=== PATIENT | male | born 1995 | race Caucasian/White ===

== ENCOUNTER 2018-01-06 14:38 | Outpatient (RCR) | payer OTHER, SELFPAY ==
--- OUTSIDE RECORDS SUMMARY | 2018-01-06 16:29 | XMS RPT_ITS ---
:1995 Author Organization OHIP Care Team Providers Name Role Phone Jasbir Logan Attending Unavailable Jasbir Logan Referring Unavailable JOSÉ ANTONIO GARCIA Primary Care Unavailable PROBLEMS PROBLEMS No Problem Records FoundPROCEDURES PROCEDURES No Procedure Records FoundRESULTS RESULTS No Result Records FoundALLERGIES ALLERGIES No Allergies Records FoundENCOUNTERS ENCOUNTERS ADMIT/DISCHARGE ACCOUNT ADMITTING ENCOUNTER LOCATION SOURCE NUMBER CLASS 01/06/2018 [id number] Ambulatory Adrianne Adrianne 9 [facility] ing:SP Repository PAYERS PAYERS ENCOUNTER GUARANTOR PAYER SUBSCRIBER SOURCE 01/06/2018 SAEED Restrepo Primary SAEED [address] [place] [id number] Insurance:PLANNED HOW[facility]LLD[facility] [id number] [address]Cpw: INCPolicy Number: Repository [id number] () Date:[id number] [address] [address]KM: 01/06/2018 Secondary SAEED Restrepo Adrianne Insurance:[facility] P[facility]AGE HOWELLDOB: [facility] Number: [id number] [id number] Repository Date:2017-12-10 01/06/2018 Tertiary NOT GIVENUNK Adrianne Insurance:SELF PAY [facility] Number: Effective Repository Date:2017-12-10
--- NOTE | 2018-01-06 18:59 | HP.SP.AD_ITS ---
History - History Date of Eval: 01/06/18 Previous speech therapy: Yes Results: Unknown. Pt reports attending speech-language therapy at this facility as a child. Other Relevant Medical History/Diagnoses/Surgery: Pt has never received a formal diagnosis but feels that he is on the autism spectrum. - Pain Is pain an issue with your current prescribed condition?: No - Personal Education History: College graduate Occupation: Unemployed Right Hearing Abillity: Normal Left Hearing Abillity: Normal Visual Assistive Devices: Glasses Patients Living Arrangements: With Family Subjective Clinical Impression - Adult Clinical Impression Dysphonia: any 'abnormal' vocal quality suggesting an interruption of normal production: Present Hoarseness: excessive 'noise' in the signal creating an unpleasant, rough vocal quality: Present Breathiness: an audible excape of air or a 'weak' vocal tone suggestive of glottal insufficiency: Present Harshness: irregular vocal fold vibrations creating a 'raspy' or unmusical tone ; a combination of hoarseness and breathiness: Present Aphonic break: a break or intrruption in the vibration or phonation: Present Pitch breaks: an interruption in the frequency of vibration of the vocal folds or a shift in vocal register during singing. A voice can break up or down in pitch: Present Diplophonia: the presence of two tones or pitches heard simultaneously during phonation: Present Objective Voice - Date of Diagnosis Date of diagnosis: 12/10/17 Other Impressions - Comments Other Impressions -: Anjel was seen by the ENT 12/10/17 and was referred for voice therapy secondary to a diagnosis of mutational dysphonia/juvenile voice disorder. Anjel's voice is characterized by constant speaking in falsetto with a high fundamental frequency, with intermediate diplophonia. His voice is overall weak and breathy. Given cues to produce vegetative type voicing (coughing, yawning, heavy lifting, etc...), he is able to produce voice at a natural and appropriate pitch. He was stimulable for speech at the lower pitch in single phonemes on this date with minimal aphonic and pitch breaks present. When questioned, Anjel states that though he feels awkward speaking in a lower pitch , he would like to pursue therapy of his own volition. Plan - Plan Plan: Therefore, skilled voice therapy is warranted as Anjle's voice is favorable for improvement given consistent therapy and carryover of recommendations. - Recommendations Treatment Warranted: Yes - Frequency Frequency: 1-2x /Week Duration: 4-6 Weeks - Prognosis Prognosis: Excellent - Goals that are Established: Determination:: Goals will be added/modified as deemed necessary and appropriate. Therapy will be discontinued when results of re-evaluation indicate therapy is no longer needed or lack of progress has been documented. - Goal #1-5 Goal #1: Anjel will demonstrate an appropriate lower pitch with vegetative voice tasks and/or ni compression method independently Accuracy: 90% # Sessions: 3/4 consecutive Goal #2: Anjel will increase awareness of his voice by identifying his lower pitch vs. his habitual pitch during structured therapy Prompts: Min Accuracy: 90% # Sessions: 3/4 consecutive Goal #3: Anjel will produce an appropriate lower pitch and improved vocal quality through the hierarchy of single phonemes, single words, sentences, reading aloud, and conversation with increased independence Prompts: Min Accuracy: 90% # Sessions: 3/4 consecutive Education - Patient Instruction Patient Education: Diagnosis, Treatment Plan, Goals
--- NOTE | 2018-03-05 09:51 | HP.SP.DC ---
ST Discharge Summary - Discharged: Discharge: Anjel Barrera is discharged from outpatient voice therapy effective 03/05/18. Anjel attended his intial evaluation but cancelled all therapy sessions and has now [place] to school [place] of [place]. During his evaluation, he was able to produce voice at a natural pitch in single words only given moderate cueing. The patient stated that he would like to continue therapy when he returns from school next summer. Please reconsult as necessary.
== END 2018-01-06 19:00 | disposition home or self-care (01) ==
LOC: SP 14:38
PROVIDERS: Family Provider Physician Assistant; PCP Physician Assistant; Visit Provider Otolaryngology
DX: R49.0 Dysphonia (principal)
CPT/HCPCS: 92524

== ENCOUNTER 2018-12-09 17:00 | Outpatient (RCR) | payer OTHER, SELFPAY ==
--- NOTE | 2018-09-21 14:26 | HP.SP.AD ---
History - History Date of Eval: 09/21/18 Previous speech therapy: Yes Results: Patient saw speech therapy in childhood. He had an evaluation summer 2017 but moved out of state so did not continue therapy. Other Relevant Medical History/Diagnoses/Surgery: Autism. Hx Smoking: No Hx Tobacco Use: No - Pain Is pain an issue with your current prescribed condition?: No - Personal Education History: [employer]. Occupation: Factory. Right Hearing Abillity: Normal Left Hearing Abillity: Normal Visual Assistive Devices: Glasses Patients Living Arrangements: Parents. Subjective Clinical Impression - Adult Clinical Impression Dysphonia: any 'abnormal' vocal quality suggesting an interruption of normal production: Present Hoarseness: excessive 'noise' in the signal creating an unpleasant, rough vocal quality: Present Breathiness: an audible excape of air or a 'weak' vocal tone suggestive of glottal insufficiency: Present Harshness: irregular vocal fold vibrations creating a 'raspy' or unmusical tone; a combination of hoarseness and breathiness: Present Aphonic break: a break or intrruption in the vibration or phonation: Present Pitch breaks: an interruption in the frequency of vibration of the vocal folds or a shift in vocal register during singing. A voice can break up or down in pitch: Present Other Impressions - Comments Voice -: Anjel was evaluated by ENT 12/10/17 and was diagnosed with mutational dysphonia. His voice is characterized by speaking in a falsetto voice and when he attempts a lower pitch then he has intermediate diplophonia. He needed a high level of cues to reduce his pitch to a more typical pitch. He was able to say his name clearly with an appropriate pitch one time with no roughness or breaks. Plan - Plan Plan: Skilled speech therapy is warranted for his voice disorder. - Recommendations Treatment Warranted: Yes - Frequency Frequency: Every Other Week Duration: 6 Weeks Visits in this POC: 6 - Prognosis Prognosis: Excellent - Goals that are Established: Determination:: Goals will be added/modified as deemed necessary and appropriate. Therapy will be discontinued when results of re-evaluation indicate therapy is no longer needed or lack of progress has been documented. - Goal #1-5 Goal #1: Anjel will demonstrate an appropriate lower pitch with vegetative voice tasks and/or manual compression method independently. Accuracy: 90% # Sessions: 3/4 sessions Goal #2: Anjel will increase awareness of his voice by identifying his lower pitch vs habitual pitch during structured therapy. Prompts: Min Accuracy: 90% # Sessions: 3/4 sessions Goal #3: Anjel will produce an appropriate lower pitch and improved vocal quality through the hierarchy of single phonemes, single words, sentences, reading aloud, and conversation with increased independence. Prompts: Min Accuracy: 90% # Sessions: 3/4 sessions. Education - Patient has Indicated that the Following Identified Educational Needs: None The Patient has indicated that they have no educational or learning abilities that may effect their care.: Yes - Patient Instruction Patient Education: Diagnosis, Treatment Plan, Goals Person Taught: Patient Teaching Method: Discussion
--- NOTE | 2018-12-09 17:16 | HP.SP.DC ---
ST Discharge Summary - Discharged: Discharge: The Patient is a 23 year old male who attended 6 skilled speech-language intervention sessions spanning from 09/21/2018 to 12/09/2018 targeting vocal functioning secondary to the diagnosis of mutational dysphonia. The Patient participated in intervention sessions consisting of training and implementation of vocal control exercises in addition to vocal modification through the Voice Resonance Training (VRT) protocol. Throughout intervention, the Patient has been able to consistently lower and maintain his vocal register to ~ 120-150 Hz, though only when prompted; otherwise he continues to utilize a high, almost falsetto vocal register (~ 250-325 Hz) with dysphonia and occasional diplophonia. Carryover has been complicated, as the Patient reports frequently ?forgetting? to advance with functional carryover tasks, preferring to maintain more isolated activities (i.e., reading to self), and appears apprehensive in regards to public usage. At this juncture, the Patient had demonstrated sufficient ability to achieve a lower vocal register, and would be able to translate this to functional usage when comfortable; however this may take a longer duration and will be heavily dependent on the desire set forth by the Patient. After discussion with the Patient, all immediate intervention goals have been met, and all are in agreement with proceeding with discharge from the skilled speech-language pathology caseload at this time. If detention carryover is not appreciated, I would gladly re-initiate intervention as needed moving forward.
== END 2018-12-09 19:00 | disposition home or self-care (01) ==
LOC: SP 17:00
PROVIDERS: Family Provider Physician Assistant; PCP Physician Assistant; Referring Provider Otolaryngology; Visit Provider Otolaryngology
DX: R49.0 Dysphonia (principal)
CPT/HCPCS: 92507; 92524

== ENCOUNTER 2024-01-07 05:49 | Emergency (ER) | payer OTHER, SELFPAY ==
[2024-01-07 05:50] VITALS: BP 140/93; PULSE 87; RESP 16; TEMP 36.8; O2SAT 98; BMI 27.3
--- NOTE | 2024-01-07 06:06 | RAD_ITS ---
EXAM: XR ABDOMEN, 2 VIEWS CLINICAL INDICATION: constipation, vomiting TECHNIQUE: Frontal view of the abdomen/pelvis with upright view of the abdomen. COMPARISON: No relevant prior studies available. FINDINGS: LOWER THORAX: No acute pathology. INTRAPERITONEAL SPACE: No free air. GASTROINTESTINAL TRACT: Moderate amount of fecal material throughout the colon. Non-obstructive. No bowel or stomach distention. ORGANS: Unremarkable as visualized. No organomegaly. No abnormal calcifications. BONES/JOINTS: No acute pathology. SOFT TISSUES: No acute pathology. RAD/Abd Inc Decub and/or Erect IMPRESSION: Constipation. No signs of obstruction. Electronically Signed: Raúl Durham MD at 6:58 EDT ,
--- NOTE | 2024-01-07 06:07 | EX.ED.DYSGE1 ---
HPI History of Present Illness Chief Complaint: Abd Pain Informant: patient Onset/Context/Timing Onset: Days Context: Gradual Onset Narrative Narrative: Patient present secondary to abdominal pain with vomiting. Patient states he has upper abdominal pain that radiates to his back that started earlier this week. This morning has had nausea and vomiting. He was seen at [facility] on the where I am able to see results of lab work and CT imaging, but no ED summary of the visit. Patient denies having fever or chills. He denies diarrhea and states he is actually been constipated. He denies history of pancreatitis. [facility] Medical History (Updated 01/07/24 @ 06:[address] Christie Mccann MD) Autism Home Medications ?Medication ?Instructions ?Recorded ?Last Taken ?Type magnesium citrate 300 ml PO X1 #1 BOTTLE 01/07/24 Unknown Rx ondansetron 4 mg disintegrating 4 mg PO Q8H PRN PRN Nausea #10 tabs 01/07/24 Unknown Rx tablet Allergy/AdvReac Type Severity Reaction Status Date / Time No Known Allergies Allergy Verified 01/07/24 05:55 Surgical History History of vasectomy Social History Smoking Status: Never smoker ROS ROS ED Constitutional Constitutional ED: Denies chills or fever(s) Eyes Eyes: Denies change in vision ENT ENT ED: Denies rhinorrhea or sore throat Cardiovascular Cardiovascular: Denies chest pain or palpitations Respiratory/Chest Respiratory/Chest: Denies cough or dyspnea Gastrointestinal Gastrointestinal: Reports abdominal pain, constipation, nausea and vomiting Genitourinary Genitourinary ED: Denies dysuria Musculoskeletal Musculoskeletal: Reports back pain Neurologic Neurologic: Denies headache(s) EXAM Physical Exam Const Vital Signs: 01/07/24 05:50 Temperature 98.3 F Temperature Source Temporal Pulse Rate 87 Respiratory Rate 16 Blood Pressure 140/93 H Blood Pressure Mean 108 Pulse Ox 98 Oxygen Delivery Method Room Air Positive well nourished and well developed General Appearance ED: well developed HEENT Reports moist mucous membranes Eyes EOMs intact bilaterally Chest Wall inspection of chest normal and palpation of chest normal Resp normal respiratory effort and clear to auscultation bilaterally Cardio regular rate and regular rhythm GI non-tender Auscultation: hypoactive bowel sounds Palpation: soft Extremity normal to inspection Neuro oriented x3 and no sensory deficits noted Motor Exam: strength 5/5 throughout Psych mental status grossly normal Skin no rashes or lesions noted MDM MDM MDM Narrative Medical decision making narrative: Patient CT scan from the is reviewed. No appreciable acute intra-abdominal or pelvic abnormality was noted. Hypoechoic lesions are noted in the right lobe of the liver measuring soft tissue density and ultrasound or MRI is recommended. Lab work was reviewed and noted a normal white count of 5.4 with a hemoglobin of 15.1. Normal differential. Chemistry studies were unremarkable including normal LFTs and lipase. Urine was unremarkable. Today IV line is established. Patient be given Zofran and Bentyl. Labwork obtained to evaluate for leukocytosis, anemia, and electrolyte derangement. Abdominal x-rays obtained to evaluate for any evidence of obstruction given the patient's vomiting and constipation. History & Record Review Discussion w/independent historian: Patient Additional record(s) reviewed:: Prior ED visit and Prior labs Lab Data Attestation: I reviewed the patient's lab results. Labs: Laboratory Results - last 24 hr 01/07/24 01/07/24 06:00 06:29 WBC 5.2 RBC 5.26 Hgb 16.5 Hct 48.6 MCV 92.4 MCH 31.4 MCHC 34.0 RDW Std Deviation 43.0 RDW Coeff of Pedro 12.6 Plt Count 321 MPV 8.6 Immature Gran % (Auto) 0.200 Neut % (Auto) 59.1 Lymph % (Auto) 27.0 [place] % (Auto) 10.5 H Eos % (Auto) 2.1 Baso % (Auto) 1.1 H Absolute Neuts (auto) 3.1 Absolute Lymphs (auto) 1.41 Nucleated RBC % 0 Sodium 138 Potassium 4.2 Chloride 103 Carbon Dioxide 30.0 Anion Gap 5 BUN 13 Creatinine 1.06 Estim Creat Clear Calc 112.86 Est GFR (MDRD) Af Amer 106 Est GFR (MDRD) Non-Af 87 BUN/Creatinine Ratio 12.3 Glucose 107 H Calcium 9.3 Total Bilirubin 0.80 Direct Bilirubin 0.18 AST 12 L ALT 27 Alkaline Phosphatase 81 Total Protein 7.8 Albumin 4.2 Globulin 3.6 Lipase 31 Urine Color Yellow Urine Clarity Clear Urine pH 6.0 Ur Specific [place] 1.020 Urine Protein Negative Urine Glucose (UA) Normal Urine Ketones Negative Urine Occult Blood Negative Urine Nitrite Negative Urine Bilirubin Negative Urine Urobilinogen Normal Ur Leukocyte Esterase Negative Urine RBC 0 SEEN Urine WBC 0 SEEN Ur Squamous Epith Cells 0 SEEN Urine Bacteria 0 SEEN Urine Mucus 0 SEEN Treatment and Re-Evaluation :: CBC was normal white count at 5.2 with a hemoglobin of 16.5. Differential unremarkable. Chemistry studies are normal. LFTs and lipase normal. Urinalysis reveals no evidence of infection or dehydration. Abdominal x-ray with upright abdomen per my interpretation does reveal constipation but no evidence of bowel obstruction. On review of the patient's home meds, it does appear that the ED physician in [place] wrote the patient for Zofran and Bentyl. He initially had told me he did not receive any prescriptions from his ED visit. He now states that he did take the medication, but after following with his primary care physician was concerned that that might be causing his constipation so he stopped taking it. I will get the patient a prescription for Zofran along with a bottle of magnesium citrate. I do feel he needs his constipation treated. He does not have any evidence of acute infection or bowel obstruction. Patient given return instructions. He is comfortable with the plan. Discharge Plan Triage Chief Complaint: Abd Pain ED Provider: Christie Mccann Dx/Rx/DC Orders Clinical Impression: Abdominal pain, Vomiting, Constipation Instructions: ED Constipation (Adult), ED Vomiting (Adult) Prescriptions: New ondansetron 4 mg tablet,disintegrating 4 mg PO Q8H PRN PRN (Reason: Nausea) Qty: 10 0RF magnesium citrate Solution 300 ml PO X1 Qty: 1 0RF Primary Care Provider: Christine Pascal Referrals: Christine Pascal MD [Primary Care Provider] - 3-5 Days if not improving Print Language: Latvian Disposition Disposition: Home, Self Care
[2024-01-07 06:17] LABS: Absolute Lymphocyte Count 1.41 X10^3/uL (0.83-4.51); Absolute Neutrophil Count 3.1 X10^3/uL (2.0-7.7); Basophil# 0.06 X10^3/uL; Basophil% 1.1 % (0-1); Eosinophil# 0.11 X10^3/uL; Eosinophils% 2.1 % (0-5); Hematocrit 48.6 % (40-54); Hemoglobin 16.5 g/dL (13.0-16.5); Lymphocyte # 1.41 X10^3/ul (0.83-4.51); Mean Corpuscular Hgb 31.4 pg (27.0-32.0); Mean Corpuscular Volume 92.4 fL (80-94); Mean Platelet Vol. 8.6 fl (6.2-12.0); Monocyte# 0.55 X10^3/uL; Monocyte% 10.5 % (0-10); NRBC Flagged by Analyzer 0 % (0-5); Neutrophil # 3.08 X10^3/uL (2.7-7.7); Neutrophil % 59.1 % (47-70); Platelet Count 321 K/mm3 (150-450); RBC Distribution Width CV 12.6 % (11.6-14.6); Red Blood Count 5.26 M/mm3 (4.6-6.2); White Blood Count 5.2 K/mm3 (4.4-11.0)
[2024-01-07] MEDS: Ondansetron 4 MG/2 ML Vial IV (06:18)
[2024-01-07] MEDS: 0.9% Normal Saline (1000mL) 1,000 ML 1000 ML IV (06:18)
[2024-01-07] MEDS: Dicyclomine 20 MG/2 ML Vial IM (06:18)
[2024-01-07 06:35] LABS: Bacteria 0 SEEN /hpf (None Seen); Mucous, Urine 0 SEEN /hpf (<or=2+); Red Blood Cells-Urine 0 SEEN /hpf (0-5); Squamous Epithelial Cells - UA 0 SEEN /hpf (0-5); White Blood Cells 0 SEEN /hpf (0-5)
[2024-01-07 06:35] LABS: AST(SGOT) 12 U/L (15-37); Alanine Aminotransfer ALT/SGPT 27 U/L (16-61); Albumin, Serum 4.2 g/dL (3.2-5.0); Alkaline Phosphatase 81 U/L (45-117); Anion Gap 5 (5-15); BUN 13 mg/dL (7-18); BUN/Creat Ratio 12.3 RATIO (10-20); Bilirubin, Direct 0.18 mg/dL (0.00-0.30); Calcium,Total 9.3 mg/dL (8.5-10.1); Chloride 103 mmol/L (98-107); Creatinine, Serum 1.06 mg/dL (0.70-1.30); EST Glomerular Filtration Rate 87 mL/min (>60); Est Glom Filt Rate - Afr Amer 106 mL/min (>60); Estimated Creatinine Clearance 112.86 ml/min; Globulin 3.6 g/dL (2.2-4.2); Glucose 107 mg/dL (74-106); Lipase 31 U/L (13-75); Potassium 4.2 mmol/L (3.5-5.1); Protein, Total 7.8 g/dL (6.4-8.2); Sodium Level 138 mmol/L (136-145)
[2024-01-07 06:37] LABS: Color, Urine Yellow (Yellow); Glucose, Dipstick Normal (Normal); Ketone-Dipstick Negative (Negative); Leukocyte Esterase-Dipstick Negative /ul (Negative); Nitrite-Dipstick Negative (Negative); Occult Blood-Urine Negative /ul (Negative); Protein-Dipstick Negative (Negative); Urine Bilirubin Dipstick Negative (Negative); Urine Clarity Clear (Clear); Urine Urobilinogen Normal (Normal)
[2024-01-07 07:08] VITALS: BP 130/76; PULSE 69; RESP 16; TEMP 36.6; O2SAT 98
== END 2024-01-07 07:08 | disposition home or self-care (01) ==
LOC: ED 07:01
PROVIDERS: Emergency Provider Emergency Medicine; PCP Physician Assistant; Visit Provider Emergency Medicine
DX: R10.9 Unspecified abdominal pain (principal); R11.10 Vomiting, unspecified; K59.00 Constipation, unspecified; F84.0 Autistic disorder
CPT/HCPCS: 74019; 80048; 80076; 81001; 83690; 85025; 96361; 96372; 96374; 96376; 99283; J7030; J7050; A4216; J2405

== ENCOUNTER 2024-02-08 08:01 | Emergency (ER) | payer OTHER, SELFPAY ==
[2024-02-08 08:01] VITALS: BP 131/88; PULSE 103; RESP 16; TEMP 36.5; O2SAT 98; BMI 27.1
--- NOTE | 2024-02-08 08:29 | CT_ITS ---
STUDY: CT ABDOMEN AND PELVIS WITH CONTRAST REASON FOR EXAM: Male, 28 years old. RLQ abdominal pain. Right testicular pain. Prior meniscectomy. RADIATION DOSAGE (If Supplied By Facility): CTDIvol = ( 13.09 ) mGy, DLP = ( 918.56 ) mGycm TECHNIQUE: Transaxial images were obtained from the dome of the diaphragm to the symphysis pubis without oral contrast. IV 100mL Isovue-370 was administered. Sagittal and coronal images were reconstructed. Individualized dose optimization techniques were used for this CT. COMPARISON: None. FINDINGS: The visualized lung bases are unremarkable. The visualized portions of the heart are within normal limits. Multiple hypodense nodules in the liver most likely representing cysts although correlation with ultrasound is recommended for further evaluation. The gallbladder is contracted. Normal spleen. Normal pancreas. Normal bilateral adrenal glands. Punctate nonobstructive calculus is seen in the upper pole calyx of the right kidney. There is a 3.1 cm x 2.3 cm cyst in the lateral aspect of the left kidney. There is a small hiatal hernia. Normal small intestine. There is diverticulosis, with thickening of the colon wall, and pericolonic inflammation changes consistent with acute diverticulitis. The appendix is visualized and appears normal. Enlarged lymph nodes in the mesentery of the right lower quadrant suggestive of mesenteric adenitis. Normal abdominal aorta. Normal inferior vena cava. There is small retroperitoneal lymphadenopathy with enlarged nodes no greater than 10mm in the short axis diameter. Diffuse bladder wall thickening. Normal abdominal wall. Normal osseous structures. CT/Abdomen/Pelvis W IV Cont ONLY IMPRESSION: Multiple hypodensities in the liver suggestive of a hepatic cyst although correlation with ultrasound is recommended. Contracted gallbladder. Left renal cyst. Noncomplicated acute sigmoid diverticulitis. Diffuse bladder wall thickening. Findings suggestive of mesenteric adenitis in the right lower quadrant. Electronically Signed: Vaibhav Chapman MD at 9:54 EDT ,
--- NOTE | 2024-02-08 08:31 | EX.ED.DYSGE1 ---
HPI History of Present Illness Chief Complaint: Abd Pain Narrative Narrative: Patient is a 28-year-old male who presents to the emergency department with a chief complaint of abdominal pain and rates his abdominal pain 4 out of 10. Patient states this been going on for a serious amount of time and notes that he has trouble with constipation. He states that his last bowel movement was this morning. He states that he has a follow-up appointment on February 13 with a specialist for his constipation. Patient states that his pain feels slightly different today which was what prompted him to come to the emergency department for further evaluation management. Patient states that he tried to take stool softeners at home which did not seem to help his abdominal pain and bowel movements. [facility] Medical History Autism Home Medications ?Medication ?Instructions ?Recorded ?Last Taken ?Type magnesium citrate 300 ml PO X1 #1 BOTTLE 01/07/24 Unknown Rx ondansetron 4 mg disintegrating 4 mg PO Q8H PRN PRN Nausea #10 tabs 01/07/24 Unknown Rx tablet amoxicillin-potassium clavulanate 2 tab PO BID 5 days #20 tabs 02/08/24 Unknown Rx 1,000 mg-62.5 mg tablet,ext.rel 12hr (Augmentin XR) hyoscyamine sulfate 0.125 mg 0.125 mg PO Q6H #16 tabs 02/08/24 Unknown Rx tablet (Levsin) Allergy/AdvReac Type Severity Reaction Status Date / Time No Known Allergies Allergy Verified 01/07/24 05:55 Surgical History History of vasectomy Social History Smoking Status: Never smoker ROS ROS ED ROS Narrative Constitutional: Denies any fevers, chills, headaches Cardiovascular: Denies chest pain or palpitations Respiratory: Denies cough wheezing shortness of breath Abdomen: Complains of abdominal pain as noted above and nausea denies vomiting or diarrhea once again noted that his last bowel movement was this morning : Denies pain formation, hematuria, polyuria, urethral discharge Neurological: Denies numbness weakness, tingling Musculoskeletal: Denies back pain Skin: Denies rashes or lesions EXAM Physical Exam Narrative Exam Narrative: General: Patient was lying in bed rest comfortably did not appear to be in acute distress Head: Atraumatic, normocephalic Eyes: PERRL bilaterally, EOMI bilaterally no conjunctival injection noted Neck: Soft, supple, trach midline Cardiovascular: Regular rate and rhythm no murmurs gallops rubs noted Respiratory: Clear to auscultation bilaterally Abdomen: Soft, nondistended, tender to palpation in the right lower quadrant, no rebound or guarding on exam Genitourinary: No evidence of inguinal hernias, no tenderness palpation over the bilateral testicles nor any tenderness to palpation over the bilateral epididymitis. No rashes or lesions noted no urethral discharge noted Extremities: Radial pulses +2/4 in the bilateral upper extremities, no pedal edema noted on exam Neurological: Patient following commands knew that he was at [facility] year is 2023 Skin: Warm, dry, intact Const Vital Signs: 02/08/24 08:01 02/08/24 10:01 Temperature 97.7 F L Temperature Source Temporal Pulse Rate 103 H 81 Respiratory Rate 16 16 Blood Pressure 131/88 H 133/77 H Blood Pressure Mean 102 95 Pulse Ox 98 98 Oxygen Delivery Method Room Air Room Air MDM MDM MDM Narrative Medical decision making narrative: Patient is a 28-year-old male who presents to the emergency department chief complaint of abdominal pain. Patient will have a workup performed here on the differential diagnosis includes but not limited to appendicitis, small bowel obstruction, constipation, UTI. Once workup is obtained reviewed he will be reevaluated. Patient will be given IV fluids and Zofran Patient CBC reviewed and showed no evidence of leukocytosis white blood count normal at 10.1, hemoglobin was normal at 14.6, platelet count stable at 312. Patient sodium normal 130, potassium 3.8, creatinine normal at 0.98. Patient's AST and ALT were 15 and 19 respectively. Patient total bilirubin normal at 0.80. Patient lipase normal at 22. Patient urinalysis did not reveal any evidence infection. Patient CT abdomen pelvis showed multiple hypodensities in the liver suggestive of hepatic cyst correlation with ultrasound recommending. Contracted gallbladder. Left renal cyst. Acute noncomplicated sigmoid diverticulitis, findings suggestive of mesenteric adenitis in the right lower quadrant. Did review the results with the patient and significant other at bedside they would like to go home at this point and patient will be sent Augmentin and Levsin to his pharmacy and was encouraged to use ibuprofen/Tylenol for pain control. He is encouraged to follow-up with his primary care physician in the outpatient setting as well as a radio sportscaster. Patient was referred to 1. Patient was encouraged to return with worsening symptoms or other concerns he is agreeable to plan all question concerns answered discharged home in stable condition. Lab Data Labs: Laboratory Results - last 24 hr 02/08/24 02/08/24 08:47 08:58 WBC 10.1 RBC 4.68 Hgb 14.6 Hct 42.6 MCV 91.0 MCH 31.2 MCHC 34.3 RDW Std Deviation 42.6 RDW Coeff of Pedro 12.9 Plt Count 312 MPV 9.1 Immature Gran % (Auto) 0.400 Neut % (Auto) 80.8 H Lymph % (Auto) 8.8 L Sutton % (Auto) 8.6 Eos % (Auto) 0.6 Baso % (Auto) 0.8 Absolute Neuts (auto) 8.1 H Absolute Lymphs (auto) 0.89 Nucleated RBC % 0 Sodium 138 Potassium 3.8 Chloride 105 Carbon Dioxide 31.0 Anion Gap 2 L BUN 10 Creatinine 0.98 Estim Creat Clear Calc 122.07 Est GFR (MDRD) Af Amer 116 Est GFR (MDRD) Non-Af 96 BUN/Creatinine Ratio 10.2 Glucose 102 Calcium 9.3 Total Bilirubin 0.80 AST 15 ALT 19 Alkaline Phosphatase 82 Total Protein 7.5 Albumin 3.7 Globulin 3.8 Albumin/Globulin Ratio 1.0 Lipase 22 Urine Color Yellow Urine Clarity Clear Urine pH 8.0 Ur Specific [place] 1.015 Urine Protein Negative Urine Glucose (UA) Normal Urine Ketones Negative Urine Occult Blood Negative Urine Nitrite Negative Urine Bilirubin Negative Urine Urobilinogen Normal Ur Leukocyte Esterase Negative Urine RBC 0 SEEN Urine WBC 0 SEEN Ur Squamous Epith Cells 0 SEEN Urine Bacteria RARE Urine Mucus 0 SEEN Radiography Diagnostic Testing: Clinical Impression(s) from Imaging Studies Abdomen/Pelvis CT 02/08/24 08:29 IMPRESSION: Multiple hypodensities in the liver suggestive of a hepatic cyst although correlation with ultrasound is recommended. Contracted gallbladder. Left renal cyst. Noncomplicated acute sigmoid diverticulitis. Diffuse bladder wall thickening. Findings suggestive of mesenteric adenitis in the right lower quadrant. Electronically Signed: Vaibhav Chapman MD at 9:54 EDT , Discharge Plan Triage Chief Complaint: Abd Pain ED Provider: Davis Valladares Dx/Rx/DC Orders Clinical Impression: Diverticulitis Prescriptions: New hyoscyamine sulfate [Levsin] 0.125 mg tablet 0.125 mg PO Q6H Qty: 16 0RF amoxicillin-pot clavulanate [Augmentin XR] 1,000-62.5 mg tablet extended release 12 hr 2 tab PO BID 5 Days Qty: 20 0RF No Action ondansetron 4 mg tablet,disintegrating 4 mg PO Q8H PRN PRN (Reason: Nausea) Qty: 10 0RF magnesium citrate Solution 300 ml PO X1 Qty: 1 0RF Primary Care Provider: Tyson Slater Referrals: Tyson Slater PA [Primary Care Provider] - Brandy,DO Chaka [Med Staff - Active Staff] - Activity Restrictions/Additional Instructions: Take prescriptions as prescribed. Follow-up with your primary care physician and a radio sportscaster. Return with worsening symptoms or any concerns. Print Language: German Disposition Disposition: Home, Self Care
[2024-02-08] MEDS: 0.9% Normal Saline (1000mL) 1,000 ML 999 ML IV (08:54)
[2024-02-08] MEDS: Ondansetron 4 MG/2 ML Vial IV (08:54)
[2024-02-08 09:25] LABS: Absolute Lymphocyte Count 0.89 X10^3/uL (0.83-4.51); Absolute Neutrophil Count 8.1 X10^3/uL (2.0-7.7); Basophil# 0.08 X10^3/uL; Basophil% 0.8 % (0-1); Eosinophil# 0.06 X10^3/uL; Eosinophils% 0.6 % (0-5); Hematocrit 42.6 % (40-54); Hemoglobin 14.6 g/dL (13.0-16.5); Lymphocyte # 0.89 X10^3/ul (0.83-4.51); Lymphocyte % 8.8 % (19-41); Mean Corp Hgb Conc 34.3 g/dL (32-36); Mean Corpuscular Hgb 31.2 pg (27.0-32.0); Mean Platelet Vol. 9.1 fl (6.2-12.0); Monocyte# 0.87 X10^3/uL; Monocyte% 8.6 % (0-10); NRBC Flagged by Analyzer 0 % (0-5); Neutrophil # 8.12 X10^3/uL (2.7-7.7); Neutrophil % 80.8 % (47-70); Platelet Count 312 K/mm3 (150-450); RBC Distribution Width CV 12.9 % (11.6-14.6); RBC Distribution Width SD 42.6 fl (35.1-43.9); Red Blood Count 4.68 M/mm3 (4.6-6.2); White Blood Count 10.1 K/mm3 (4.4-11.0)
[2024-02-08 09:31] LABS: Mucous, Urine 0 SEEN /hpf (<or=2+); Red Blood Cells-Urine 0 SEEN /hpf (0-5); Squamous Epithelial Cells - UA 0 SEEN /hpf (0-5); White Blood Cells 0 SEEN /hpf (0-5)
[2024-02-08 09:32] LABS: Color, Urine Yellow (Yellow); Glucose, Dipstick Normal (Normal); Ketone-Dipstick Negative (Negative); Leukocyte Esterase-Dipstick Negative /ul (Negative); Nitrite-Dipstick Negative (Negative); Occult Blood-Urine Negative /ul (Negative); Protein-Dipstick Negative (Negative); Specific Gravity, Urine 1.015 (1.002-1.030); Urine Bilirubin Dipstick Negative (Negative); Urine Clarity Clear (Clear); Urine Urobilinogen Normal (Normal)
[2024-02-08 09:45] LABS: Bacteria RARE /hpf (None Seen)
[2024-02-08 10:01] VITALS: BP 133/77; PULSE 81; RESP 16; O2SAT 98
[2024-02-08 10:02] LABS: AST(SGOT) 15 U/L (15-37); Alanine Aminotransfer ALT/SGPT 19 U/L (16-61); Albumin, Serum 3.7 g/dL (3.2-5.0); Alkaline Phosphatase 82 U/L (45-117); Anion Gap 2 (5-15); BUN 10 mg/dL (7-18); BUN/Creat Ratio 10.2 RATIO (10-20); Calcium,Total 9.3 mg/dL (8.5-10.1); Chloride 105 mmol/L (98-107); Creatinine, Serum 0.98 mg/dL (0.70-1.30); EST Glomerular Filtration Rate 96 mL/min (>60); Est Glom Filt Rate - Afr Amer 116 mL/min (>60); Estimated Creatinine Clearance 122.07 ml/min; Globulin 3.8 g/dL (2.2-4.2); Glucose 102 mg/dL (74-106); Lipase 22 U/L (13-75); Potassium 3.8 mmol/L (3.5-5.1); Protein, Total 7.5 g/dL (6.4-8.2); Sodium Level 138 mmol/L (136-145)
[2024-02-08 11:44] VITALS: BP 122/73; PULSE 71; RESP 15; TEMP 36.4; O2SAT 98
== END 2024-02-08 11:45 | disposition home or self-care (01) ==
PROVIDERS: Emergency Provider Emergency Medicine; PCP Physician Assistant; Visit Provider Emergency Medicine
DX: K57.32 Diverticulitis of large intestine without perforation or abscess without bleeding (principal); F84.0 Autistic disorder
CPT/HCPCS: 74177; 80053; 81001; 83690; 85025; 96374; 99283; J7030; Q9967; A4216; J2405

== ENCOUNTER 2024-11-01 17:28 | Emergency (ER) | payer OTHER, SELFPAY ==
[2024-11-01 17:29] VITALS: BP 124/78; PULSE 88; RESP 16; TEMP 36.4; O2SAT 96; BMI 27.3
--- NOTE | 2024-11-01 19:06 | EX.ED.GUMALE ---
HPI History of Present Illness Chief Complaint: Male Pain/Injury Informant: patient Pain Onset: Today and Yesterday Context: Gradual Onset Timing: Continuous Current Severity: Mild Maximum Severity: Mild Narrative Narrative: 29-year-old autistic male with no significant past medical history. Complaining of scrotal pain and what he thinks is a bump. Denies any fall or trauma. No dysuria. No fever. Prior similar symptoms: No Recent Illness/Hospitalization: No PFSH PFSH Medical History Autism Home Medications ?Medication ?Instructions ?Recorded ?Last Taken ?Type magnesium citrate 300 ml PO X1 #1 BOTTLE 01/07/24 Unknown Rx ondansetron 4 mg disintegrating 4 mg PO Q8H PRN PRN Nausea #10 tabs 01/07/24 Unknown Rx tablet amoxicillin-potassium clavulanate 2 tab PO BID 5 days #20 tabs 02/08/24 Unknown Rx 1,000 mg-62.5 mg tablet,ext.rel 12hr (Augmentin XR) hyoscyamine sulfate 0.125 mg 0.125 mg PO Q6H #16 tabs 02/08/24 Unknown Rx tablet (Levsin) cephalexin 500 mg capsule 500 mg PO Q6 #40 CAPSULES 11/01/24 Unknown Rx Allergy/AdvReac Type Severity Reaction Status Date / Time No Known Allergies Allergy Verified 11/01/24 17:29 Surgical History History of vasectomy Social History Smoking Status: Never smoker ROS ROS ED ROS Narrative Denies recent illness. Constitutional Constitutional ED: Denies chills or fever(s) Eyes Eyes: Denies blurry vision ENT ENT ED: Denies ear pain Cardiovascular Cardiovascular: Denies chest pain Respiratory/Chest Respiratory/Chest: Denies cough or dyspnea Gastrointestinal Gastrointestinal: Denies abdominal pain Genitourinary Genitourinary ED: Denies dysuria or hematuria Musculoskeletal Musculoskeletal: Denies arthralgias Integumentary Reports abscess Neurologic Neurologic: Denies headache(s) Psychiatric Psychiatric: Denies anxiety Endocrine Endocrinology: Denies polydipsia Hematologic/Lymphatic Hematologic/Lymphatic: Denies easy bleeding, easy bruising or lymphadenopathy Allergic/Immunologic Allergic/Immunologic ED: Denies mouth swelling, tongue swelling or urticaria EXAM Physical Exam Narrative Exam Narrative: Well-appearing 29-year-old male. Vital signs stable afebrile. Significant other at bedside. H EENT exam pupils round reactive light. Moist mucous membranes. Neck nontender no lymphadenopathy. Lungs clear heart regular rhythm rate about 90 no murmur. Chest wall ribs nontender. Abdomen soft nontender. Moving all 4 extremities. External exam circumcised male. Testicles nontender. No lymphadenopathy. He has a very small abscess on his anterior scrotum. In the midline. It is firm and hard. There is nothing to drain there is no fluctuance. There is no surrounding cellulitis. There is no discharge or drainage. There is no necrotic skin. This is not foreign years. Moving all 4 extremities. Nontender no edema. He is awake and alert. Const Vital Signs: 11/01/24 17:29 Temperature 97.5 F L Temperature Source Temporal Pulse Rate 88 Respiratory Rate 16 Blood Pressure 124/78 H Blood Pressure Mean 93 Pulse Ox 96 Oxygen Delivery Method Room Air Positive well nourished and well developed; Negative for obese, cachectic, contractures or unkempt General Appearance ED: well developed and NAD; Negative for unkempt, cachectic, contractures or pallor Nutritional Appearance: Negative for cachectic or obese HEENT Reports moist mucous membranes normocephalic and atraumatic Eyes PERRL and EOMs intact bilaterally Neck no lymphadenopathy, supple and no JVD Resp normal respiratory effort and clear to auscultation bilaterally Cardio regular rate, regular rhythm, S1 normal heart sound, S2 normal heart sound and no murmurs GI non-tender, non-distended and no masses Auscultation: normoactive bowel sounds Palpation: soft; Negative for tender or guarding no CVA tenderness Narrative: Small scrotal abscess in the anterior midline. No lymphadenopathy. No cellulitis. Circumcised. No testicular tenderness. No scrotal swelling. No gangrene. Firm. No fluctuance. Nothing to drain at this time. Back/Spine no CVA tenderness Extremity normal to inspection General Extremety ED: Negative for edema, pulses abnormal or tenderness General Extremity: Negative for edema or pulses abnormal Neuro oriented x3, CN's II-XII intact bilaterally, moves all extremities and no focal motor deficits Sensorium / Orientation: alert, oriented to person and oriented to place Motor Exam: strength 5/5 throughout Psych mental status grossly normal Appearance: Negative for unkempt Mood & Affect: Negative for depressed Skin General Skin Exam: Negative for jaundice or pallor Lesions: no lesions Rashes: no rashes MDM MDM MDM Narrative Medical decision making narrative: 29-year-old male early scrotal abscess. Nothing to drain. No fluctuance. He placed on Keflex. Warm compresses. Motrin and Tylenol for pain. He was instructed if this gets worse to return to have it drained. Keflex 4 times a day for 10 days. Discharge Plan Triage Chief Complaint: Male Pain/Injury ED Provider: Doyle King Dx/Rx/DC Orders Clinical Impression: Abscess, scrotum, History of autism Instructions: ED Abscess Antibiotic Treatment Only Prescriptions: New cephalexin 500 mg capsule 500 mg PO Q6 Qty: 40 0RF No Action ondansetron 4 mg tablet,disintegrating 4 mg PO Q8H PRN PRN (Reason: Nausea) Qty: 10 0RF magnesium citrate Solution 300 ml PO X1 Qty: 1 0RF hyoscyamine sulfate [Levsin] 0.125 mg tablet 0.125 mg PO Q6H Qty: 16 0RF amoxicillin-pot clavulanate [Augmentin XR] 1,000-62.5 mg tablet extended release 12 hr 2 tab PO BID 5 Days Qty: 20 0RF Primary Care Provider: Tyson Slater Referrals: Tyson Slater PA [Primary Care Provider] - 3-5 Days if not improving Activity Restrictions/Additional Instructions: Motrin and Tylenol for pain. You have a small abscess on your scrotum. Will start you on antibiotics. Currently it is too small to drain. If the abscess gets a lot bigger return and we can drain it. At this time trying to drain it would just make you bleed. The antibiotic Keflex 4 times a day till gone. Follow-up with your primary care provider if not improving or return if a lot worse. Print Language: Frisian Disposition Disposition: Home, Self Care
[2024-11-01 19:15] VITALS: BP 127/69; PULSE 69; RESP 18; TEMP 36.4; O2SAT 96
[2024-11-01] MEDS: Cephalexin 250 MG Capsule 500 MG PO (19:19)
== END 2024-11-01 19:21 | disposition home or self-care (01) ==
PROVIDERS: Emergency Provider Emergency Medicine; PCP Physician Assistant; Visit Provider Emergency Medicine
DX: N49.2 Inflammatory disorders of scrotum (principal); F84.0 Autistic disorder
CPT/HCPCS: 99282